=== PATIENT | female | born 1955 | race Caucasian/White ===

== ENCOUNTER 2024-07-06 16:37 | Inpatient (IN) | payer MEDICAID, OTHER ==
[~2024-07-06] VITALS: Ht 162.6 cm; Wt 87.1 kg
[~2024-07-06 16:37] MED LIST: ACET-683 PO; ACET1TAB55 PO; ASPI-226; ATOR80TA59; CARV12.5 PO; ELIQ5TAB PO; FURO20TA2; GABA-1490 PO; INSU100I60; LEVO25TA5 PO; LOSA100T46; OMEP-173; OXYB5TAB14; SEMA0.257 SQ; TRAM50TA2 PO; VENL150C43
[2024-07-06] MEDS ORDERED: TRUL0.5I SC (17:54)
[2024-07-06] MEDS ORDERED: PANT40TA29 PO (17:54)
[2024-07-06] MEDS ORDERED: MAGN64TASA PO (17:54)
[2024-07-06] MEDS ORDERED: ONDA-83 PO (17:54)
[2024-07-06] MEDS ORDERED: MILKSUS3 PO (17:54)
[2024-07-06] MEDS ORDERED: LANTINJ4 SC (17:54)
[2024-07-06] MEDS ORDERED: VENL75CA47 PO (17:54)
[2024-07-06] MEDS ORDERED: SENN1TAB85 PO (17:54)
[2024-07-06] MEDS ORDERED: FLEEENE12 PR (17:54)
[2024-07-06] MEDS ORDERED: OXYB10TA23 PO (17:54)
[2024-07-06] MEDS ORDERED: DULC10SU2 PR (17:54)
[2024-07-06] MEDS ORDERED: ATOR40TA75 PO (17:54)
[2024-07-06] MEDS ORDERED: LOSA25TA13 PO (17:54)
[2024-07-06] MEDS ORDERED: HOME MED LIST COMPLETE! XX SCH (17:55)
[2024-07-06 18:00] LABS: BASO % 0.8 % (0.0-1.0); EOS # 0.1 10^3/uL (0.0-0.5); EOS % 2.3 % (0.0-3.0); HEMATOCRIT 33.1 % (36.0-47.0); LYMPH # 1.8 10^3/uL (1.5-5.0); MEAN CORPUSCULAR HEMOGLOBIN 26.7 pg (27.0-33.0); MEAN CORPUSCULAR HGB CONC 30.2 g/dl (32.0-36.5); MEAN CORPUSCULAR VOLUME 88.3 fl (80.0-96.0); MONO # 0.6 10^3/uL (0.0-0.8); MONO % 10.6 % (2.0-8.0); NEUTROPHILS # 2.8 10^3/uL (1.5-8.5); NEUTROPHILS % 53.1 % (36.0-66.0); PLATELET COUNT, AUTOMATED 163 10^3/uL (150-450); RED BLOOD COUNT 3.75 10^6/uL (4.00-5.40); WHITE BLOOD COUNT 5.3 10^3/uL (4.0-10.0)
[2024-07-06 18:23] LABS: LIPASE 26 U/L (12-53)
[2024-07-06 18:25] LABS: ALBUMIN 3.1 G/DL (3.2-5.2); ALKALINE PHOSPHATASE 118 U/L (46-116); ALT/SGPT 14 U/L (7.0-40); AST/SGOT < 8 U/L (<34); BILIRUBIN,DIRECT < 0.1 MG/DL (<0.4); BILIRUBIN,TOTAL 0.3 MG/DL (0.3-1.2); BLOOD UREA NITROGEN 26 MG/DL (9-23); CARBON DIOXIDE LEVEL 30 MMOL/L (20-31); CHLORIDE LEVEL 105 MMOL/L (98-107); CREATININE FOR GFR 0.79 MG/DL (0.55-1.30); GLOMERULAR FILTRATION RATE > 60.0 (>45); GLUCOSE, FASTING 176 MG/DL (74-106); POTASSIUM SERUM 4.1 MMOL/L (3.5-5.1); SODIUM LEVEL 137 MMOL/L (136-145); TOTAL PROTEIN 6.2 G/DL (5.7-8.2)
[2024-07-06] MEDS: NS 1,000 ML IV SCH (20:08)
[2024-07-06] MEDS ORDERED: GLUCAGON INJ 1MG VIAL SC PRN (21:20)
[2024-07-06] MEDS ORDERED: GLUCOSE 4 GM CHEW PO PRN (21:20)
[2024-07-06] MEDS ORDERED: DEXTROSE 50% 50ML SYRINGE IV PRN (21:20)
[2024-07-06] MEDS: LEVEMIR (INSULIN DETEMIR) 1 UNITS/0.01ML SC SCH (21:32)
[2024-07-06 22:34] VITALS: BP 109/79; TEMP 97.9; O2SAT 95
[2024-07-07 00:30] VITALS: BP 117/73; TEMP 98.8; O2SAT 93
[2024-07-07] MEDS: INSULIN LISPRO (NovoLOG) PER UNIT SC SCH (00:31)
[2024-07-07 04:17] VITALS: BP 124/73; TEMP 97.9; O2SAT 91
[2024-07-07 07:40] LABS: HEMATOCRIT 32.5 % (36.0-47.0); HEMOGLOBIN 9.8 g/dl (12.0-15.5); MEAN CORPUSCULAR HEMOGLOBIN 26.3 pg (27.0-33.0); MEAN CORPUSCULAR HGB CONC 30.2 g/dl (32.0-36.5); MEAN CORPUSCULAR VOLUME 87.1 fl (80.0-96.0); PLATELET COUNT, AUTOMATED 179 10^3/uL (150-450); RED BLOOD COUNT 3.73 10^6/uL (4.00-5.40)
[2024-07-07 08:08] LABS: ALBUMIN 2.9 G/DL (3.2-5.2); ALKALINE PHOSPHATASE 113 U/L (46-116); ALT/SGPT 13 U/L (7.0-40); AST/SGOT < 8 U/L (<34); BILIRUBIN,TOTAL 0.3 MG/DL (0.3-1.2); BLOOD UREA NITROGEN 24 MG/DL (9-23); CALCIUM LEVEL 9.9 MG/DL (8.3-10.6); CARBON DIOXIDE LEVEL 27 MMOL/L (20-31); CHLORIDE LEVEL 109 MMOL/L (98-107); CREATININE FOR GFR 0.66 MG/DL (0.55-1.30); GLOMERULAR FILTRATION RATE > 60.0 (>45); GLUCOSE, FASTING 75 MG/DL (74-106); POTASSIUM SERUM 3.9 MMOL/L (3.5-5.1); SODIUM LEVEL 141 MMOL/L (136-145); TOTAL PROTEIN 5.9 G/DL (5.7-8.2)
[2024-07-07] MEDS ORDERED: FLEET OIL RETENTION ENEMA PR ONE (09:00)
[2024-07-07] MEDS: PANTOPRAZOLE 40MG VIAL IV SCH (10:32)
[2024-07-07] MEDS: ENOXAPARIN 40MG/0.4ML SYRINGE (J1650 PER 10MG) SC SCH (10:32)
[2024-07-07] MEDS: D5W/0.9% SODIUM CHLORIDE 1,000 ML IV SCH (10:50)
[2024-07-07] MEDS: FLEET ENEMA PR ONE (11:48)
[2024-07-07 12:00] VITALS: BP 127/73; TEMP 98.1; O2SAT 94
[2024-07-07 19:30] VITALS: BP 135/72; TEMP 97.9; O2SAT 90
[2024-07-08 03:32] VITALS: BP 147/73; TEMP 98.6; O2SAT 90
[2024-07-08 08:23] LABS: HEMATOCRIT 30.6 % (36.0-47.0); HEMOGLOBIN 9.3 g/dl (12.0-15.5); MEAN CORPUSCULAR HEMOGLOBIN 26.5 pg (27.0-33.0); MEAN CORPUSCULAR HGB CONC 30.4 g/dl (32.0-36.5); MEAN CORPUSCULAR VOLUME 87.2 fl (80.0-96.0); PLATELET COUNT, AUTOMATED 168 10^3/uL (150-450); RED BLOOD COUNT 3.51 10^6/uL (4.00-5.40); WHITE BLOOD COUNT 5.1 10^3/uL (4.0-10.0)
[2024-07-08 08:47] LABS: BLOOD UREA NITROGEN 21 MG/DL (9-23); CARBON DIOXIDE LEVEL 25 MMOL/L (20-31); CHLORIDE LEVEL 113 MMOL/L (98-107); CREATININE FOR GFR 0.66 MG/DL (0.55-1.30); GLOMERULAR FILTRATION RATE > 60.0 (>45); GLUCOSE, FASTING 136 MG/DL (74-106); POTASSIUM SERUM 3.2 MMOL/L (3.5-5.1); SODIUM LEVEL 144 MMOL/L (136-145)
[2024-07-08 12:00] VITALS: BP 145/72; TEMP 97.3; O2SAT 93
[2024-07-08 19:15] LABS: MAGNESIUM LEVEL 1.4 MG/DL (1.8-2.4)
[2024-07-08 20:09] VITALS: BP 142/65; TEMP 97.7; O2SAT 96
[2024-07-08] MEDS: KCL 10MEQ/100ML SWI (KRUN) 10 MEQ in IV 1 EA IV SCH (20:09)
[2024-07-08] MEDS: MAG SULF 1GM/100ML (MAG RUN) 1 GM in IV 1 EA IV SCH (22:42)
[2024-07-09] VITALS (7 sets, daily range): BP systolic 136–137; BP diastolic 59–67; TEMP 97–98.6; O2SAT 83–95
[2024-07-09 05:37] LABS: HEMATOCRIT 29.6 % (36.0-47.0); HEMOGLOBIN 8.8 g/dl (12.0-15.5); MEAN CORPUSCULAR HEMOGLOBIN 25.8 pg (27.0-33.0); MEAN CORPUSCULAR HGB CONC 29.7 g/dl (32.0-36.5); MEAN CORPUSCULAR VOLUME 86.8 fl (80.0-96.0); PLATELET COUNT, AUTOMATED 180 10^3/uL (150-450); RED BLOOD COUNT 3.41 10^6/uL (4.00-5.40)
[2024-07-09 06:05] LABS: BLOOD UREA NITROGEN 17 MG/DL (9-23); CALCIUM LEVEL 9.8 MG/DL (8.3-10.6); CARBON DIOXIDE LEVEL 26 MMOL/L (20-31); CHLORIDE LEVEL 112 MMOL/L (98-107); CREATININE FOR GFR 0.59 MG/DL (0.55-1.30); GLOMERULAR FILTRATION RATE > 60.0 (>45); GLUCOSE, FASTING 139 MG/DL (74-106); MAGNESIUM LEVEL 1.7 MG/DL (1.8-2.4); POTASSIUM SERUM 3.1 MMOL/L (3.5-5.1); SODIUM LEVEL 145 MMOL/L (136-145)
[2024-07-09] MEDS ORDERED: GASTROGRAFIN SOLUTION 30ML As Ordered ONE (08:47)
[2024-07-10 04:00] VITALS: BP 146/69; TEMP 97.3; O2SAT 94
[2024-07-10 05:29] LABS: HEMATOCRIT 29.4 % (36.0-47.0); HEMOGLOBIN 9.1 g/dl (12.0-15.5); MEAN CORPUSCULAR HEMOGLOBIN 26.7 pg (27.0-33.0); MEAN CORPUSCULAR VOLUME 86.2 fl (80.0-96.0); PLATELET COUNT, AUTOMATED 180 10^3/uL (150-450); RED BLOOD COUNT 3.41 10^6/uL (4.00-5.40); WHITE BLOOD COUNT 5.5 10^3/uL (4.0-10.0)
[2024-07-10 05:49] LABS: BLOOD UREA NITROGEN 14 MG/DL (9-23); CALCIUM LEVEL 10.1 MG/DL (8.3-10.6); CARBON DIOXIDE LEVEL 24 MMOL/L (20-31); CHLORIDE LEVEL 113 MMOL/L (98-107); CREATININE FOR GFR 0.58 MG/DL (0.55-1.30); GLOMERULAR FILTRATION RATE > 60.0 (>45); GLUCOSE, FASTING 151 MG/DL (74-106); POTASSIUM SERUM 3.3 MMOL/L (3.5-5.1); SODIUM LEVEL 144 MMOL/L (136-145)
[2024-07-10] MEDS ORDERED: propofoL 200 MG/20 ML VIAL As Ordered ONE (12:15)
[2024-07-10] MEDS ORDERED: ePHEDrine SULFATE 25 MG/5 ML(5MG/ML) SYRINGE As Ordered ONE (12:15)
[2024-07-10] MEDS ORDERED: LIDOCAINE 2% 100MG/5ML SDV (FOR ANES.) As Ordered ONE (12:16)
[2024-07-10 20:00] VITALS: BP 164/72; TEMP 97.9; O2SAT 93
[2024-07-10] MEDS ORDERED: ONDANSETRON 4MG 2ML VIAL IV PRN (20:55)
[2024-07-11 04:00] VITALS: BP 152/63; TEMP 97; O2SAT 95
[2024-07-11 05:58] LABS: HEMATOCRIT 29.9 % (36.0-47.0); MEAN CORPUSCULAR HGB CONC 30.1 g/dl (32.0-36.5); MEAN CORPUSCULAR VOLUME 86.4 fl (80.0-96.0); PLATELET COUNT, AUTOMATED 148 10^3/uL (150-450); RED BLOOD COUNT 3.46 10^6/uL (4.00-5.40); WHITE BLOOD COUNT 8.6 10^3/uL (4.0-10.0)
[2024-07-11] MEDS: LEVOTHYROXINE 25MCG TABLET (0.025MG) PO SCH (06:12)
[2024-07-11 06:42] LABS: BLOOD UREA NITROGEN 11 MG/DL (9-23); CALCIUM LEVEL 9.4 MG/DL (8.3-10.6); CARBON DIOXIDE LEVEL 24 MMOL/L (20-31); CHLORIDE LEVEL 111 MMOL/L (98-107); CREATININE FOR GFR 0.59 MG/DL (0.55-1.30); GLOMERULAR FILTRATION RATE > 60.0 (>45); GLUCOSE, FASTING 128 MG/DL (74-106); POTASSIUM SERUM 2.9 MMOL/L (3.5-5.1); SODIUM LEVEL 141 MMOL/L (136-145)
[2024-07-11] MEDS: KCL 10MEQ/100ML SWI (KRUN) 10 MEQ in IV 1 EA IV SCH ×3 (06:53→19:17)
[2024-07-11] MEDS: INSULIN LISPRO (NovoLOG) PER UNIT SC SCH ×2 (07:30→21:00)
[2024-07-11 08:27] LABS: MAGNESIUM LEVEL 1.2 MG/DL (1.8-2.4)
[2024-07-11] MEDS: LOSARTAN 25 MG TAB PO SCH (08:57)
[2024-07-11] MEDS: CARVedilol 12.5 MG TAB PO SCH (08:57)
[2024-07-11] MEDS: POTASSIUM CHLORIDE 10MEQ SR TABLET PO SCH (08:58)
[2024-07-11] MEDS: VENLAFAXINE **XR** 75MG CAPSULE PO SCH (08:58)
[2024-07-11] MEDS: POTASSIUM CHLORIDE 10MEQ SR TABLET PO ONE (11:16)
[2024-07-11] MEDS: MAG SULF 1GM/100ML (MAG RUN) 1 GM in IV 1 EA IV ONE ×3 (11:16→17:51)
[2024-07-11 12:00] VITALS: BP 134/55; TEMP 97.7; O2SAT 92
[2024-07-11] MEDS ORDERED: KCL 10MEQ/100ML SWI (KRUN) 10 MEQ in IV 1 EA IV SCH (12:30)
[2024-07-11 16:00] VITALS: BP 134/57; TEMP 98.6; O2SAT 92
[2024-07-11 16:52] LABS: BLOOD UREA NITROGEN 12 MG/DL (9-23); CALCIUM LEVEL 9.7 MG/DL (8.3-10.6); CARBON DIOXIDE LEVEL 22 MMOL/L (20-31); CHLORIDE LEVEL 112 MMOL/L (98-107); CREATININE FOR GFR 0.65 MG/DL (0.55-1.30); GLOMERULAR FILTRATION RATE > 60.0 (>45); GLUCOSE, FASTING 213 MG/DL (74-106); MAGNESIUM LEVEL 1.7 MG/DL (1.8-2.4); POTASSIUM SERUM 3.5 MMOL/L (3.5-5.1); SODIUM LEVEL 139 MMOL/L (136-145)
[2024-07-11 19:40] VITALS: BP 158/68; TEMP 99.1; O2SAT 91
[2024-07-11] MEDS: ATORVASTATIN 20 MG TAB PO SCH (21:23)
[2024-07-12 03:10] VITALS: BP 155/66; TEMP 98.1; O2SAT 92
[2024-07-12 05:38] LABS: HEMATOCRIT 29.7 % (36.0-47.0); HEMOGLOBIN 9.1 g/dl (12.0-15.5); MEAN CORPUSCULAR HEMOGLOBIN 26.5 pg (27.0-33.0); MEAN CORPUSCULAR HGB CONC 30.6 g/dl (32.0-36.5); MEAN CORPUSCULAR VOLUME 86.6 fl (80.0-96.0); PLATELET COUNT, AUTOMATED 143 10^3/uL (150-450); RED BLOOD COUNT 3.43 10^6/uL (4.00-5.40); WHITE BLOOD COUNT 6.3 10^3/uL (4.0-10.0)
[2024-07-12 06:05] LABS: BLOOD UREA NITROGEN 10 MG/DL (9-23); CALCIUM LEVEL 9.8 MG/DL (8.3-10.6); CARBON DIOXIDE LEVEL 23 MMOL/L (20-31); CHLORIDE LEVEL 113 MMOL/L (98-107); CREATININE FOR GFR 0.63 MG/DL (0.55-1.30); GLOMERULAR FILTRATION RATE > 60.0 (>45); GLUCOSE, FASTING 181 MG/DL (74-106); POTASSIUM SERUM 3.6 MMOL/L (3.5-5.1); SODIUM LEVEL 141 MMOL/L (136-145)
[2024-07-12 09:05] VITALS: BP 148/66
[2024-07-12] MEDS: MAG SULF 1GM/100ML (MAG RUN) 1 GM in IV 1 EA IV ONE (09:05)
[2024-07-12 09:13] VITALS: BP 148/66
== END 2024-07-12 12:15 | DRG 375 ==
LOC: EDBD 16:37 → M ED 16:37 → M ED INP 19:31 → M MSPAV 22:35
PROVIDERS: ADMIT Student in an Organized Health Care Education/Training Program; ATTEND Internal Medicine Nephrology
PROC: 0DBP8ZX Excision of Rectum, Via Natural or Artificial Opening Endoscopic, Diagnostic (ICD-10-PCS; principal; 2024-07-10 11:45)
DX: C20 Malignant neoplasm of rectum (principal); I48.20 Chronic atrial fibrillation, unspecified; J44.9 Chronic obstructive pulmonary disease, unspecified; E03.9 Hypothyroidism, unspecified; F01.50 Vascular dementia, unspecified severity, without behavioral disturbance, psychotic disturbance, mood disturbance, and anxiety; I50.9 Heart failure, unspecified; G30.9 Alzheimer's disease, unspecified; K21.9 Gastro-esophageal reflux disease without esophagitis; E78.5 Hyperlipidemia, unspecified; I11.0 Hypertensive heart disease with heart failure; E11.40 Type 2 diabetes mellitus with diabetic neuropathy, unspecified; K59.81 Ogilvie syndrome; F79 Unspecified intellectual disabilities; K59.09 Other constipation; F32.A Depression, unspecified; E83.42 Hypomagnesemia; E87.6 Hypokalemia; Z88.0 Allergy status to penicillin; Z79.899 Other long term (current) drug therapy; Z79.4 Long term (current) use of insulin; I69.391 Dysphagia following cerebral infarction; R29.6 Repeated falls; E66.9 Obesity, unspecified

== ENCOUNTER 2025-07-19 19:21 | Emergency (ER) | payer MEDICARE, MEDICAID ==
[~2025-07-19] VITALS: Ht 167.6 cm; Wt 131.4 kg
[~2025-07-19 19:21] MED LIST changes: +ASPI81TA26 PO; +ATOR40TA75 PO; +DULC10SU2 PR; +FLEEENE12 PR; +LANTINJ4 SC; +LOSA25TA13 PO; +MAGN64TASA PO; +MILKSUS3 PO; +ONDA-83 PO; +OXYB10TA23 PO; +PANT40TA29 PO; +SENN1TAB85 PO; +TRUL0.5I SC; +VENL75CA47 PO
[2025-07-19 20:39] LABS: BASO # 0.1 10^3/uL (0.0-0.2); BASO % 0.6 % (0.0-1.0); EOS # 0.1 10^3/uL (0.0-0.5); EOS % 1.2 % (0.0-3.0); LYMPH # 2.3 10^3/uL (1.5-5.0); LYMPH % 25.4 % (24.0-44.0); MONO # 0.8 10^3/uL (0.0-0.8); MONO % 9.3 % (2.0-8.0); NEUTROPHILS # 5.7 10^3/uL (1.5-8.5); NEUTROPHILS % 63.2 % (36.0-66.0); PLATELET COUNT, AUTOMATED 194 10^3/uL (150-450)
[2025-07-19 20:51] LABS: INR 1.46
[2025-07-19] MEDS: IPRATROPIUM 0.5 MG/ALBUTEROL 2.5 MG INH SOL UD 3 ML NEB ONE (20:53)
[2025-07-19 21:11] LABS: ALT/SGPT 15.0 U/L (7.0-40); AST/SGOT 11.0 U/L (<34); CALCIUM LEVEL 9.2 MG/DL (8.3-10.6); CARBON DIOXIDE LEVEL 23.0 MMOL/L (20-31); CHLORIDE LEVEL 105.0 MMOL/L (98-107); CREATININE FOR GFR 1.01 MG/DL (0.55-1.30); GLOMERULAR FILTRATION RATE 60.3 (>45); POTASSIUM SERUM 4.2 MMOL/L (3.5-5.1); SODIUM LEVEL 139.0 MMOL/L (136-145)
[2025-07-19] MEDS ORDERED: ISOVUE-370 76% 100 ML VIAL As Ordered ONE (21:21)
[2025-07-20] VITALS (17 sets, daily range): BP systolic 101–155; BP diastolic 55–79; TEMP 98.6–100.5; O2SAT 94–99
[2025-07-20] MEDS: ACETAMINOPHEN *IV* 1,000 MG in IV 1 EA IV ONE (01:14)
[2025-07-20] MEDS: LevoFLOXacin IV 500 MG in IV 1 EA IV ONE (03:12)
== END 2025-07-20 12:43 | disposition short-term general hospital (02) ==
LOC: M ED 19:21 → EDBD 19:21 → M ED 07-20 12:43
DX: K92.2 Gastrointestinal hemorrhage, unspecified (principal); D64.9 Anemia, unspecified; A04.0 Enteropathogenic Escherichia coli infection; R93.421 Abnormal radiologic findings on diagnostic imaging of right kidney; I51.7 Cardiomegaly; K57.30 Diverticulosis of large intestine without perforation or abscess without bleeding; K21.9 Gastro-esophageal reflux disease without esophagitis; E11.9 Type 2 diabetes mellitus without complications; I10 Essential (primary) hypertension; E03.9 Hypothyroidism, unspecified; E78.5 Hyperlipidemia, unspecified; C18.9 Malignant neoplasm of colon, unspecified; Z86.79 Personal history of other diseases of the circulatory system; Z79.01 Long term (current) use of anticoagulants; Z88.0 Allergy status to penicillin; Z79.1 Long term (current) use of non-steroidal anti-inflammatories (NSAID); Z79.82 Long term (current) use of aspirin; Z79.02 Long term (current) use of antithrombotics/antiplatelets; Z79.4 Long term (current) use of insulin; Z79.899 Other long term (current) drug therapy
CPT/HCPCS: 36430; 71045; 74174; 80053; 83605; 83690; 85025; 85610; 85730; 86850; 86900; 86901; 86920; 87507; 94640; 96374; 96375; 99285; J0131; J1956; P9016; Q9967